=== PATIENT | male | born 1990 | race Caucasian/White ===

== ENCOUNTER 2022-01-03 17:55 | Emergency (ER) | payer BC ==
[2022-01-03 20:19] VITALS: BP 151/100; PULSE 79
== END 2022-01-03 21:25 | disposition home or self-care (01) ==
LOC: MW.ED 17:55
DX: G51.0 Bell's palsy (principal); Z86.16 Personal history of COVID-19
CPT/HCPCS: 99283

== ENCOUNTER 2023-06-19 12:45 | Emergency (ER) | payer BC ==
[2023-06-19] MEDS ORDERED: Sodium Chloride 0.9% 2.5 ML Syringe FLUSH PRN (14:56)
[2023-06-19] MEDS ORDERED: Sodium Chloride 0.9% 10 ML Syringe FLUSH PRN (14:56)
[2023-06-19 15:23] LABS: BASOPHILS ABSOLUTE AUTO 0.1 K/uL (0.0-0.1); BASOPHILS PERCENT AUTO 0.8 % (0.0-1.5); EOSINOPHILS ABSOLUTE AUTO 0.4 K/uL (0.0-0.7); EOSINOPHILS PERCENT AUTO 3.7 % (0.0-7.0); HEMATOCRIT 43.8 % (38.0-50.0); HEMOGLOBIN 15.3 g/dL (13.0-17.0); LYMPHOCYTES ABSOLUTE AUTO 2.2 K/uL (0.6-2.4); LYMPHOCYTES PERCENT AUTO 22.1 % (16.0-40.0); MEAN CORPUSCULAR HEMOGLOBIN 29.9 pg (27.0-32.0); MEAN CORPUSCULAR HGB CONC 34.9 g/dL (31.0-37.0); MEAN CORPUSCULAR VOLUME 85.7 fL (80.0-98.0); MONOCYTES ABSOLUTE AUTO 0.7 K/uL (0.0-0.8); MONOCYTES PERCENT AUTO 7.1 % (0.0-15.0); NEUTROPHILS ABSOLUTE AUTO 6.5 K/uL (1.4-5.7); NEUTROPHILS PERCENT AUTO 66.3 % (48.0-80.0); NRBC ABSOLUTE 0 K/uL; PLATELET COUNT,PLT 282 K/uL (150-400); RED BLOOD CELL COUNT 5.11 M/uL (4.50-5.90); WHITE BLOOD CELL COUNT,WBC 9.74 K/uL (4.0-11.0)
[2023-06-19 16:04] LABS: BLOOD UREA NITROGEN,BUN 17 mg/dL (7.0-18.0); CALCIUM 8.6 mg/dL (8.5-10.1); CARBON DIOXIDE,CO2 29.3 mmol/L (21.0-32.0); CHLORIDE,CL 100 mmol/L (98-107); CREATININE 1.1 mg/dL (0.8-1.3); EST CRCL DRUG DOSING (CG) 112.09 mL/min; GLUCOSE RANDOM 94 mg/dL (74-106); POTASSIUM,K 3.9 mmol/L (3.5-5.1); SODIUM,NA 142 mmol/L (136-148)
[2023-06-19 16:12] LABS: ESTIMATED GFR 91 mL/min (>60)
[2023-06-19 17:07] VITALS: BP 114/77; PULSE 82
== END 2023-06-19 17:06 | disposition home or self-care (01) ==
LOC: MW.ED 12:45
DX: R00.2 Palpitations (principal); R06.00 Dyspnea, unspecified; I48.91 Unspecified atrial fibrillation; I49.3 Ventricular premature depolarization; I49.9 Cardiac arrhythmia, unspecified; R00.9 Unspecified abnormalities of heart beat; F17.200 Nicotine dependence, unspecified, uncomplicated; Z86.16 Personal history of COVID-19
CPT/HCPCS: 36415; 80048; 83735; 83880; 84484; 85025; 85379; 93005; 93246; 99285; J3490; 93010; 99283